=== PATIENT | female | born 1965 | race Caucasian/White ===

== ENCOUNTER → 2016-08-31 | Outpatient (CLI) | payer BC ==
[2016-08-31 18:14] LABS: URINE APPEARANCE CLEAR (CLEAR); URINE BILIRUBIN NEG (NEG); URINE COLOR YELLOW; URINE EPITHELIAL CELL AUTO >30 /lpf (0-5); URINE NITRITE NEG (NEG); URINE PH 5.5 (4.5-7.5); URINE SPECIFIC GRAVITY 1.021 (1.000-1.030); UROBILINOGEN NEG (NEG)
[2016-08-31 18:22] LABS: MANUAL MICROSCOPIC REQUIRED? NO; REVIEW REQ? NO
[2016-08-31 19:10] LABS: BLOOD UREA NITROGEN 17 mg/dl (7-18); BUN/CREATININE RATIO 11.8 (10-20); CALCIUM 9.7 mg/dl (8.5-10.1); CARBON DIOXIDE 30 mmol/L (21-32); CHLORIDE 105 mmol/L (98-107); GLUCOSE 92 mg/dl (70-99); PHOSPHORUS 2.9 mg/dl (2.5-4.9); POTASSIUM 4.5 mmol/L (3.5-5.1); SODIUM 140 mmol/L (136-145)
== END | disposition home or self-care (01) ==
LOC: C.LABMFLN 11:50
PROVIDERS: ATTEND Family Medicine
DX: N20.0 Calculus of kidney (principal)

== ENCOUNTER → 2016-10-08 | Outpatient (CLI) | payer BC | END | disposition home or self-care (01) | LOC: C.LABMFLN 15:49 | PROVIDERS: ATTEND Physician Assistant | DX: M54.9 Dorsalgia, unspecified (principal) ==

== ENCOUNTER → 2016-11-26 | Outpatient (CLI) | payer BC | END | disposition home or self-care (01) | LOC: C.LABMFLN 11:05 | PROVIDERS: ATTEND Family Medicine | DX: R39.9 Unspecified symptoms and signs involving the genitourinary system (principal); R10.32 Left lower quadrant pain ==

== ENCOUNTER → 2017-10-22 | Outpatient (CLI) | payer BC | END | disposition home or self-care (01) | LOC: C.PAPS 18:48 | PROVIDERS: ATTEND Family Medicine | DX: Z01.419 Encounter for gynecological examination (general) (routine) without abnormal findings (principal) ==

== ENCOUNTER → 2017-10-25 | Outpatient (CLI) | payer BC ==
[2017-10-25 12:29] LABS: BASO % 0.1 %; BASO ABS # 0.01 K/uL (0-0.2); EOS % 0.7 %; EOS ABS # 0.06 K/uL (0-0.5); HEMATOCRIT 45.4 % (37-47); HEMOGLOBIN 14.3 g/dL (12.0-16.0); IG# 0.04 K/uL (0.00-0.02); LYMPH % 30.5 %; LYMPH ABS # 2.61 K/uL (1.2-3.4); MEAN CELL VOLUME 90.6 fL (80-100); MEAN CORPUSCULAR HEMOGLOBIN 28.5 pg (25-34); MEAN CORPUSCULAR HGB CONC 31.5 g/dl (32-36); MONO % 6.2 %; MONO ABS # 0.53 K/uL (0.11-0.59); PLATELET COUNT 239 K/uL (130-400); RED CELL DISTRIBUTION WIDTH CV 14.2 % (11.5-14.5); RED CELL DISTRIBUTION WIDTH SD 46.4 fL (36.4-46.3); WHITE BLOOD COUNT 8.55 K/uL (4.8-10.8)
[2017-10-25 12:54] LABS: ALBUMIN 3.3 gm/dl (3.4-5.0); ALKALINE PHOSPHATASE 99 U/L (45-117); ALT/SGPT 21 U/L (12-78); AST/SGOT 15 U/L (15-37); BLOOD UREA NITROGEN 16 mg/dl (7-18); CALCIUM 8.7 mg/dl (8.5-10.1); CARBON DIOXIDE 27 mmol/L (21-32); CHOLESTEROL 169 mg/dl (0-200); CREATININE 1.28 mg/dl (0.60-1.20); GLUCOSE 114 mg/dl (70-99); LDL CHOLESTEROL CALCULATED 90 mg/dl; POTASSIUM 3.8 mmol/L (3.5-5.1); SODIUM 138 mmol/L (136-145); TOTAL PROTEIN 7.5 gm/dl (6.4-8.2)
== END | disposition home or self-care (01) ==
LOC: C.LABMFLN 07:19
PROVIDERS: ATTEND Family Medicine
DX: N20.0 Calculus of kidney (principal); Z13.220 Encounter for screening for lipoid disorders